=== PATIENT | female | born 1990 | race Hispanic/Latino ===

== ENCOUNTER 2018-01-28 06:30 | Inpatient (IN) | payer OTHER ==
[2018-01-28] MEDS ORDERED: Oxytocin 30 UNIT 30 UNITS/500 ML BAG IV ONE ×2 (07:10→11:12)
[2018-01-28] MEDS ORDERED: OXYTOCIN/0.9 % NS 20 UNIT/1,000 ML BAG IV SCH (07:15)
[2018-01-28] MEDS ORDERED: Lactated Ringer's 1,000 ML IV SCH (07:15)
[2018-01-28 07:16] VITALS: BMI 59.4
[2018-01-28] MEDS: Lactated Ringer's 1,000 ML IV ONE ×3 (07:30→10:15)
[2018-01-28] MEDS ORDERED: Fentanyl/Bupivacaine HCl 250 ML EPI ONE (08:19)
[2018-01-28] MEDS ORDERED: ePHEDrine 50 mg/ml Inj ONE (09:03)
[2018-01-28] MEDS ORDERED: Lidocaine 1% Inj (20ml) ONE (11:12)
[2018-01-28] MEDS: Lactated Ringer's 500 ML IV SCH ×5 (11:18→14:56)
[2018-01-28] MEDS ORDERED: Benzocaine/Menthol SPRAY TOP PRN ×2 (14:59→17:56)
[2018-01-29 06:18] LABS: BASO % 0.2 % (0.0-2.0); EOS # 0.1 K/uL (0.0-0.7); EOS % 0.6 % (0.0-4.0); HEMOGLOBIN 12.3 g/dL (12.0-16.0); LYMPH # 3.2 K/uL (1.0-4.3); LYMPH % 15.9 % (20.0-40.0); MEAN CELL VOLUME 87.1 fl (81.0-99.0); MEAN CORPUSCULAR HEMOGLOBIN 28.3 pg (27.0-31.0); MEAN CORPUSCULAR HGB CONC 32.5 g/dL (33.0-37.0); MEAN PLATELET VOLUME 9.6 fl (7.2-11.7); MONO % 10.1 % (0.0-10.0); NEUT # 14.6 K/uL (1.8-7.0); NEUT % 73.2 % (50.0-75.0); RBC 4.33 Mil/uL (3.80-5.20); RED CELL DISTRIBUTION WIDTH 13.5 % (11.5-14.5); WHITE BLOOD COUNT 19.9 K/uL (4.8-10.8)
--- NOTE | 2018-01-29 09:30 | OBPPN ---
Datetime: 01/29/2018 09:12 PP Pain Prov: Within normal limits PP Nausea Prov: Denies PP Flatus Prov: Yes PP Breasts Prov: Not Done PP Heart Prov: Normal PP Lungs Prov: Normal PP Abdomen/Uterus Prov: Normal PP Lochia Prov: Not Done PP Vulva/Perineum Prov: Not Done PP CVA Tenderness Prov: Normal PP Extremities Prov: Normal PP Impression Prov: Normal progression PP Plan Prov: Continue present management PP Progress Note Prov: She doing well ambulating tolerating diet Vital signs stable afebrile Uterus firm below the umbilicus Termination no Homans day Ambulate, analgesia, anticipate discharge in a.m. Vital Signs Provider PP: Reviewed
[2018-01-30] MEDS ORDERED: Lansinoh for Breast Feeding Mothers TP ONE (04:15)
[2018-01-30 22:08] VITALS: BP 114/74; PULSE 100; RESP 19; TEMP 98.1; O2SAT 99
--- NOTE | 2018-01-31 09:07 | OBDCSUM ---
Datetime: 01/30/2018 14:32 Discharge Diagnosis, Provider: Term Delivered
--- NOTE | 2018-01-31 09:07 | OBPPN ---
Datetime: 01/30/2018 09:05 PP Pain Prov: Within normal limits PP Nausea Prov: Denies PP Flatus Prov: Yes PP BM Prov: Yes PP Breasts Prov: Normal PP Heart Prov: Normal PP Lungs Prov: Normal PP Abdomen/Uterus Prov: Normal PP Lochia Prov: Normal PP Vulva/Perineum Prov: Normal PP CVA Tenderness Prov: Normal PP Extremities Prov: Normal PP Impression Prov: Normal progression PP Plan Prov: Continue present management PP Progress Note Prov: day #2 status post , patient recovering well Discharge patient home with instructions Follow up in office in 6 weeks IP PP Procedures: None Vital Signs Provider PP: Reviewed; Within Normal Limits
== END 2018-01-30 15:10 | disposition home or self-care (01) | DRG 807 ==
LOC: H.EROB2 06:30 → H.L&D 07:08 → H.OB/GYN 15:50
PROVIDERS: ADMIT Obstetrics & Gynecology; ATTEND Obstetrics & Gynecology
PROC: 4A1HXCZ Monitoring of Products of Conception, Cardiac Rate, External Approach (ICD-10-PCS; principal; 2018-01-28)
PROC: 10E0XZZ Delivery of Products of Conception, External Approach (ICD-10-PCS; 2018-01-28)
DX: O69.81X0 Labor and delivery complicated by cord around neck, without compression, not applicable or unspecified (principal); Z37.0 Single live birth; Z3A.38 38 weeks gestation of pregnancy; O77.0 Labor and delivery complicated by meconium in amniotic fluid